=== PATIENT | female | born 1965 ===

== ENCOUNTER → 2022-04-15 | Day surgery (SDC) | payer BC, OTHER ==
[~2022-04-15] MED LIST: B COMPLEX1 EACH PO; FENTANYL CITRATE/PF 100MCG/2 ML INJ ONE; LIDOCAINE HCL 2% LOCAL INJ 5 ML SDV VIAL INJ ONE; MAGNESIUM OXID400 MG PO; PROPOFOL IV EMULSION 10 MG/ML 50 ML VIAL IV ONE; VITAMIN E400 UNI1 PO
[2022-04-15 14:42] VITALS: BP 126/82
== END | disposition home or self-care (01) ==
LOC: OR 11:34 → EDSEX 14:00
PROVIDERS: ATTEND Internal Medicine Gastroenterology
DX: K59.09 Other constipation (principal); Z85.038 Personal history of other malignant neoplasm of large intestine; K63.5 Polyp of colon; K29.50 Unspecified chronic gastritis without bleeding; B96.81 Helicobacter pylori [H. pylori] as the cause of diseases classified elsewhere; K20.90 Esophagitis, unspecified without bleeding; K44.9 Diaphragmatic hernia without obstruction or gangrene; Z98.0 Intestinal bypass and anastomosis status; K57.30 Diverticulosis of large intestine without perforation or abscess without bleeding; K62.89 Other specified diseases of anus and rectum; K64.8 Other hemorrhoids; Z88.8 Allergy status to other drugs, medicaments and biological substances; Z01.810 Encounter for preprocedural cardiovascular examination
CPT/HCPCS: 43239; 45380; 45385; 93005; C9113; J2001; J2704; J3010